=== PATIENT | male | born 1950 | race Caucasian/White ===

== ENCOUNTER → 2017-02-05 | Outpatient (CLI) | payer MEDICARE ==
[~2017-02-05] MED LIST: ASPI-515 PO; CLOP75TA PO; CLOP75TA52 PO; DICL75TA2 PO; HYDR-3150 PO; HYDR12.58 PO; LEVO150T PO; LOVA20TA2 PO; NORT25CA PO; OMNIPAQUE 350 MG/ML, 150 ML BOTTLE ONE; ONDA4TAB7 PO; PRED5TAB PO; SENN-25 PO; TEST2.5G3 TP
== END | disposition home or self-care (01) ==
LOC: RAD 13:58
PROVIDERS: ATTEND Specialist
DX: I65.23 Occlusion and stenosis of bilateral carotid arteries (principal); I63.8 Other cerebral infarction
CPT/HCPCS: 0042T; 70496; 70498; Q9967